=== PATIENT | female | born 1965 | race African-American/Black ===

== ENCOUNTER 2022-02-19 13:48 | Observation (INO) | payer SELFPAY ==
[2022-02-19] VITALS (20 sets, daily range): BP systolic 102–209; BP diastolic 54–121; PULSE 78–108; RESP 14–25; TEMP 36.5–36.8; O2SAT 96–100; BMI 33.6
--- NOTE | ~2022-02-19 | NM_ITS ---
EXAMINATION: NM stress w perf spect multi DATE: 02/20/2022 09:06 INDICATION: Chest pain TECHNIQUE: Rest images were obtained following intravenous administration of 10.5 mCi Tc99m tetrofosm in ([employer]). The patient performed an exercise activity. At peak exercise, 33 mCi Tc99m tetrofosmin ([employer]) was administered intravenously, and stress images were obtained. Data was reconstructed int o short axis and horizontal and vertical long axis SPECT images. Gated SPECT images were also obtaine d. COMPARISON: None. FINDINGS: There is normal left ventricular perfusion without definite evidence of reversible or fixed perfusion abnormality to suggest ischemia or infarction. There is normal left ventricular chamber size, wall motion and ejection fraction. Left ventricular ejection fraction measures >70%. IMPRESSION: 1. Normal myocardial perfusion at rest and during stress. 2. Left ventricular ejection fraction measuring >70%. Reviewed, dictated and finalized at location B.
--- NOTE | ~2022-02-19 | XR_ITS ---
EXAMINATION: XR chest 2V DATE: 02/19/2022 14:07 INDICATION: Chest pain TECHNIQUE: Frontal and lateral views of the chest are obtained COMPARISON: None available FINDINGS: The lungs are free of acute opacities. There is no pleural effusion or pneumothorax. The ca rdiomediastinal silhouette is normal. There is mild thoracic spondylosis. IMPRESSION: 1. No acute cardiopulmonary abnormality. Reviewed, dictated and finalized at location F.
--- NOTE | 2022-02-19 13:51 | ECG_ITS ---
Rate 95 IN 151 QRSd 84 QT 330 QTc 416 --[place]-- P 56 QRS -11 T 137 SINUS RHYTHM DELAYED PRECORDIAL R/S TRANSITION LEFT VENTRICULAR HYPERTROPHY AND ST-T CHANGE BORDERLINE ST-T WAVE ABNORMALITY- DIFFUSE LEADS BASELINE ARTIFACT- V4, V6 BORDERLINE ECG Electronically Signed On 03-01-2022 12:20:05 CDT by Daniel Matos D.O. NO PREVIOUS ECG AVAILABLE FOR COMPARISON [facility]
[2022-02-19 14:07] LABS: Basophils Percent Auto 0.4 % (0.2-1.2); Eosinophils Absolute Auto 0.1 K/mm3 (0-0.3); Hematocrit 38.6 % (37.0-47.0); Hemoglobin 12.1 g/dL (12.0-15.0); Immature Granulocyte Absolute 0.02 K/mm3 (0.00-0.031); Immature Granulocyte Percent A 0.3 % (0-0.5); Lymphocytes Absolute Auto 2.76 K/mm3 (0.9-3.2); Lymphocytes Percent Auto 39.9 % (18.3-44.2); Mean Corpuscular HGB Conc 31.3 g/dl (32-36); Mean Corpuscular Hemoglobin 28.9 pg (26-34); Mean Corpuscular Volume 92.3 fl (80-100); Mean Platelet Volume 10.3 fl (7.4-10.4); Monocytes Absolute Auto 0.5 K/mm3 (0.1-0.6); Monocytes Percent Auto 6.6 % (2.6-8.5); Neutrophils Absolute Auto 3.6 K/mm3 (1.3-6.7); Neutrophils Percent Auto 51.8 % (45.5-73.1); Platelet Count Result 252 k/mm3 (150-375); Red Blood Count 4.18 M/mm3 (4.2-5.4); Red Cell Distribution Width 13.8 % (11.5-14.5); White Blood Count 6.9 K/mm3 (4.5-10.0)
[2022-02-19 14:25] LABS: Alanine Aminotransferase 28 U/L (4-35); Alkaline Phosphatase 90 U/L (38-126); Anion Gap 11 mmol/L (8-16); Aspartate Amino Transferase 35 U/L (14-36); Bilirubin,Total 0.4 mg/dL (0.2-1.3); Blood Urea Nitrogen 9 mg/dL (7-17); Calcium 9.1 mg/dL (8.4-10.2); Carbon Dioxide 22 mmol/L (22-30); Chloride 107 mmol/L (98-107); Estimated Glomerular Filt Rate > 60; Glucose 120 mg/dL (65-110); Lipase 62 U/L (23-300); Potassium 4.3 mmol/L (3.4-5.0); Sodium 140 mmol/L (137-145)
[2022-02-19 14:29] LABS: Prothrombin Time 13.2 Seconds (11.1-14.7); Troponin I < 0.012 ng/mL (0.000-0.034)
[2022-02-19 14:30] LABS: Partial Thromboplastin Time 28.9 SECONDS (22.3-36.8)
--- NOTE | 2022-02-19 14:50 | ED.CHESTPAIN ---
HPI - Chest Pain General Chief Complaint: Chest Pain Stated Complaint: chest pain/beck Time Seen by Provider: 02/19/22 14:39 Source: patient Mode of arrival: ambulatory Limitations: no limitations History of Present Illness HPI narrative: The patient is a 56-year-old female with a history of hypertension presenting to the emergency department for evaluation of headache, chest pain. Patient reports that she has had headache and chest pain intermittently over the past several weeks. Patient states that her chest pain seems to be associated with exertion and she experiences increased chest pain whenever she exerts herself. The chest pain when it occurs is associated with nausea, diaphoresis. She denies lightheadedness. Denies radiation of the pain to the neck, back, shoulder. She denies any significant current pain. States that when the pain occurs it is in the center of her chest without radiation to the lower flanks. No ripping or tearing sensation to the pain. She denies any lower extremity swelling, redness. Denies history of known COVID infection. States she has received 2 vaccinations. Patient denies any cough, hemoptysis. Denies fever, chills. Patient states that she has been seen by her primary care physician in the past but has been lost to follow-up since she has no insurance, thus discontinued her antihypertensives over a year ago. Related Data Allergies Allergy/AdvReac Type Severity Reaction Status Date / Time lisinopril AdvReac Cough Verified 02/19/22 14:27 Review of Systems Review of Systems: CONSTITUTIONAL: Denies fever, chills, or sweats. EYES: Denies visual changes, redness, or discharge. ENT: Denies rhinorrhea, congestion, sore throat, or otalgia. CARDIOVASCULAR: Denies chest pain, palpitations, or edema. RESPIRATORY: Denies cough or dyspnea. GASTROINTESTINAL: Denies abdominal pain, nausea, vomiting, or diarrhea. GENITOURINARY: Denies dysuria or hematuria. SKIN: Denies rash or itching. MUSCULOSKELETAL: Denies back pain, joint pain, or myalgia. NEUROLOGIC: Reports headache without associated numbness or weakness [facility] Social History Social History (Updated 02/19/22 @ 15:32 by Rebecca Horne MD) Smoking status: Never smoker Alcohol intake: never Substance use: never Gender identity (if verbalized by the patient): Female Exam Narrative: GENERAL: Awake, alert, conversant HEAD: Normocephalic, atraumatic. EYES: PERRLA and EOMI. ENT: Nares clear, no rhinorrhea or epistaxis. Mucous membranes moist. NECK: Supple. CHEST: No respiratory distress, breathing even and non labored, no chest wall tenderness HEART: Regular rate, sinus rhythm ABDOMEN:Non distended, non tender EXTREMITIES: Normal range of motion. No edema. SKIN: Warm, dry, no rash. NEURO:No focal deficits. Alert and oriented x3 Course Vital Signs Vital signs: Vital Signs Temperature 36.8 C 02/19/22 14:22 Pulse Rate 92 02/19/22 14:22 Respiratory Rate 14 02/19/22 14:22 Blood Pressure 209/113 H 02/19/22 14:22 Pulse Oximetry 99 02/19/22 14:22 Temperature 36.8 C 02/19/22 14:22 Pulse Rate 107 H 02/19/22 17:30 Respiratory Rate 17 02/19/22 17:30 Blood Pressure 180/100 H 02/19/22 17:30 Pulse Oximetry 99 02/19/22 17:30 MDM - Chest Pain MDM Narrative Medical decision making narrative: Patient presenting to the emergency department for evaluation of elevated blood pressure, chest pain but denies current chest pain. Patient reports her chest pain has been with exertion, resolved with rest. The time of assessment, patient is quite hypertensive. IV access obtained and labs are drawn laboratory results are reassuring. No KKOO, no elevation in troponin with 2 separate troponin testing. Given symptoms have been ongoing for several weeks, I think most of this is likely related to her chronic hypertension which has been untreated for years at this point. Patient was given IV hydralazine, oral amlodipine. Repeat blo
[2022-02-19] MEDS: ASPIRIN 81 MG CHEWABLE TABLET 324 MG PO (14:55)
[2022-02-19] MEDS: hydrALAZINE HCL 20 MG/ML VIAL 10 MG IV PUSH (15:47)
[2022-02-19] MEDS: amLODIPine BESYLATE 5 MG TABLET PO (16:00)
[2022-02-19] MEDS: hydrALAZINE HCL 20 MG/ML VIAL IV PUSH (16:37)
[2022-02-19 17:33] LABS: Troponin I < 0.012 ng/mL (0.000-0.034)
--- NOTE | 2022-02-19 18:01 | ECG_ITS ---
Measurements Intervals [place] Rate: 98 P: 22 [place]: 142 QRS: -6 QRSD: 85 T: 7 QT: 363 QTc: 464 Interpretive Statements SINUS RHYTHM NONSPECIFIC T-WAVE ABNORMALITY NO PREVIOUS ECG AVAILABLE FOR COMPARISON Electronically Signed On 02-21-2022 13:11:22 CDT by Serina GARCIA
[2022-02-19] MEDS: MORPHINE SULFATE (*CRX) 4 MG/ML INJ IV PUSH (18:07)
[2022-02-19] MEDS: NITROGLYCERIN SL 0.4 MG TABLET SUBLINGUAL (18:07)
[2022-02-19] MEDS: BELLADONNA ALK/PHENOB ELIX 10 ML, MAG HYDROX/ALUMINUM HYD/SIMETH 30 ML, LIDOCAINE HCL 2... PO (18:12)
[2022-02-19] MEDS: SODIUM CHLORIDE 0.9% IV 500 ML 999 ML IV CONT (18:28)
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
[2022-02-19 19:32] LABS: D Dimer 0.39 ug/mL (<0.48)
--- NOTE | 2022-02-19 20:33 | ADMGEN ---
This patient, Chloe Muñoz, was admitted to IMU Room 211-01 at 2031. Patient/family oriented to hospital policies and general routines including ID bracelet, bed and alarms, visiting hours, pain management, procedures, bathroom and other care routines, personal items, smoking policy, room service/diet, and visiting hours. Information on how to activate the Rapid Response Team has been discussed. Patient/Family are encouraged to report perceived risks to care and to ask questions if they do not understand what they are told or what they should do.
[2022-02-19 21:24] LABS: Troponin I 0.012 ng/mL (0.000-0.034)
--- NOTE | 2022-02-19 22:20 | PC.NURSE ---
patient stated that she takes no home medication. the medication that is on her list she said that she hasn't taken for a very long time and that she does not even have a dr.
--- NOTE | 2022-02-19 22:22 | PC.NURSE ---
dr kincaid is aware of patients constant intermittent chest pain. medication ordered. will continue to monitor.
[2022-02-20] VITALS: PULSE 88; RESP 20; O2SAT 96
--- NOTE | 2022-02-20 | ECHO_ITS ---
Patient Info Name: Chloe Muñoz Age: 56 years : 1965 Gender: Female Ht: 64 in Wt: 198 lbs BSA: 2.05 m2 HR: 77 bpm BP: 151 / 86 mmHg Heart Rhythm: Sinus Rhythm Technical Quality: Fair Exam Date: 02/20/2022 9:41 AM Exam Location: [facility] Pulmonary Patient Status: Outpatient Admit Date: 02/19/2022 Staff Ordering Physician: Daniel Matos DO Director Search Marketing Strategies: Alee Sanders RDCS Attending Provider: Daniel Matos DO Referring Physician: Carlo COOPER; Exam Type: CA echo doppler color flow Study Info Indications - su Complete two-dimensional, color flow and Doppler transthoracic echocardiogram is performed. Summary 1. Complete two-dimensional, color flow and Doppler transthoracic echocardiogram is performed. 2. Left ventricular chamber dimension is normal. 3. Left ventricular systolic function is hyperdynamic, estimated at >70%. 4. There is mildly increased left ventricular wall thickness. 5. The left ventricular diastolic function is grade II diastolic dysfunction. 6. E/e' 15 is elevated. 7. No pulmonary hypertension, estimated pulmonary arterial systolic pressure is 15 mmHg. Left Ventricle E/e' 15 is elevated. Left ventricular chamber dimension is normal. Left ventricular systolic function is hyperdynamic, estimated at >70%. There is mildly increased left ventricular wall thickness. The left ventricular diastolic function is grade II diastolic dysfunction. Right Ventricle Right ventricular systolic function is normal and with normal TAPSE 2.1 cm. Right ventricular chamber dimension is normal. Left Atria Left atrial chamber dimension is normal. Right Atria Right atrial chamber dimension is normal. Aortic Valve The aortic valve is not well visualized. Cannot determine number of aortic valve leaflets. There is no aortic valve stenosis. There is no aortic valve regurgitation. Pulmonic Valve There is no pulmonic regurgitation. Mitral Valve There is no mitral valve stenosis. There is no mitral valve regurgitation. Tricuspid Valve There is no tricuspid valve regurgitation. No pulmonary hypertension, estimated pulmonary arterial systolic pressure is 15 mmHg. Pericardium/Pleural There is no pericardial effusion. Inferior Vena Cava Normal inferior vena cava with >50% collapse upon inspiration consistent with normal right atrial pressure, 5 mmHg. Aorta The aortic root size at the sinus of Valsalva is normal. Left Ventricular Outflow Tract Name Value Normal LVOT 2D LVOT Diameter 2.1 cm LVOT Doppler LVOT Peak Gradient 8 mmHg LVOT Mean Gradient 4 mmHg LVOT VTI 26 cm LVOT VTI/AV VTI Ratio 1.0 LVOT Stroke Volume 90 ml LVOT CO 7.0 l/min LVOT CI 3.4 l/min/m2 Pulmonic Valve Name Value Normal
[2022-02-20 02:00] VITALS: PULSE 82
[2022-02-20 04:00] VITALS: BP 151/86; PULSE 81; PULSE 82; RESP 20; TEMP 36.7; O2SAT 96; O2SAT 97
[2022-02-20] MEDS: KETOROLAC 15 MG/ML VIAL (*BKC) IV PUSH (04:41)
[2022-02-20 05:44] LABS: Cholesterol 201 mg/dL (0-200); HDL Direct 30 mg/dL; Triglycerides 566 mg/dL (<150)
[2022-02-20 05:46] LABS: LDL Cholesterol Direct 48 mg/dL
[2022-02-20 06:00] VITALS: PULSE 80
--- NOTE | 2022-02-20 07:15 | PC.NURSE ---
patient off floor for stress test.
[2022-02-20 09:00] VITALS: BP 156/84; PULSE 74; PULSE 90; RESP 16; TEMP 35.8; O2SAT 99
--- NOTE | 2022-02-20 09:00 | EST_ITS ---
Patient Info Name: Chloe Muñoz Age: 56 years : 1965 Gender: Female Ht: 64 in Wt: 195 lbs BSA: 2.03 m2 Exam Date: 02/20/2022 8:00 AM Exam Location: [facility] Stress Patient Status: Inpatient Admit Date: 02/19/2022 Staff Ordering Physician: Daniel Matos DO Attending Provider: Daniel Matos DO Exercise Technologist: Lashanda Mckenzie RDCS Exercise Physician: Daniel Matos DO Exam Type: CA stress test treadmill w NM Study Info Indications R07.9 - Chest pain, unspecified A nuclear stress test was performed. Summary 1. 1. Negative Uriel exercise stress test for ischemic ST changes by ECG criteria. However, patient achieved only 81% MPHR for age group which reduces sensitivity of the test. 2. 2. Reduced functional capacity, achieving 7 METs of workload. 3. 3. Baseline hypertension with hypertensive response to exercise. 4. 4. Appropriate HR response to exercise. 5. 5. Appropriate HR recovery at 1 minute post exercise. 6. 6. Nuclear scan to follow and will be reported separately. Please correlate with it. 7. 7. Patient informed of the above results. Protocol: Uriel Stress ECG Details Stage: REST Duration (min): 1 min : 51 sec Speed (mph): 0.0 Grade (%): 0 HR (bpm): 73 SBP (mmHg): 167 DBP (mmHg): 86 METS: --- Stage: REST Duration (min): 7 min : 32 sec Speed (mph): 0.0 Grade (%): 0 HR (bpm): 78 SBP (mmHg): 167 DBP (mmHg): 86 METS: --- Stage: STAGE 1 Duration (min): 1 min : 0 sec Speed (mph): 1.7 Grade (%): 10 HR (bpm): 103 SBP (mmHg): 167 DBP (mmHg): 86 METS: --- Stage: STAGE 1 Duration (min): 2 min : 0 sec Speed (mph): 1.7 Grade (%): 10 HR (bpm): 112 SBP (mmHg): 167 DBP (mmHg): 86 METS: --- Stage: STAGE 1 Duration (min): 3 min : 0 sec Speed (mph): 1.7 Grade (%): 10 HR (bpm): 117 SBP (mmHg): 215 DBP (mmHg): 85 METS: --- Stage: STAGE 2 Duration (min): 1 min : 0 sec Speed (mph): 2.5 Grade (%): 12 HR (bpm): 125 SBP (mmHg): 215 DBP (mmHg): 85 METS: --- Stage: STAGE 2 Duration (min): 2 min : 0 sec Speed (mph): 2.5 Grade (%): 12 HR (bpm): 132 SBP (mmHg): 216 DBP (mmHg): 89 METS: --- Stage: STAGE 2 Duration (min): 2 min : 20 sec Speed (mph): 2.5 Grade (%): 12 HR (bpm): 133 SBP (mmHg): 216 DBP (mmHg): 89 METS: --- Stage: RECOVERY Duration (min): 0 min : 39 sec Speed (mph): 0.0 Grade (%): 0 HR (bpm): 129 SBP (mmHg): 216 DBP (mmHg): 89 METS: --- Stage: RECOVERY Duration (min): 1 min : 39 sec Speed (mph): 0.0 Grade (%): 0 HR (bpm): 101 SBP (mmHg): 216 DBP (mmHg): 89 METS: --- Stage: RECOVERY Duration (min): 2 min : 39 sec Speed (mph): 0.0 Grade (%): 0 HR (bpm): 94 SBP (mmHg): 221 DBP (mmHg): 91 METS: --- Stage: RECOVERY Duration (min): 3 min : 39 sec Speed (mph): 0.0
--- NOTE | 2022-02-20 09:00 | PC.NURSE ---
Pt returned from [facility] via wheelchair
[2022-02-20] MEDS: amLODIPine BESYLATE 5 MG TABLET PO (09:01)
[2022-02-20] MEDS: ASPIRIN 81 MG CHEWABLE TABLET PO (09:01)
[2022-02-20] MEDS: OMEGA 3 POLYUNSAT FATTY ACIDS 1 GM CAP 2 GM PO (09:02)
[2022-02-20] MEDS: FENOFIBRATE 160 MG TABLET PO (09:02)
[2022-02-20] MEDS: LOSARTAN POTASSIUM 50 MG TABLET PO (09:02)
[2022-02-20] MEDS: ACETAMINOPHEN 325 MG TABLET 650 MG PO (09:03)
[2022-02-20 10:00] VITALS: PULSE 79
--- NOTE | 2022-02-20 12:10 | PM.DS ---
DS: Admitting Diagnosis Discharge Date CP, hypertensive urgency. Admitting Diagnosis CP DS: Summary Hospital Course Reason for hospitalization: CP Hospital Course: 56 yr old woman presents with cp and headaches and had high BP in 200 SBP. WV was r/o by serial troponin and EKG. Stress nuclear is negative for ischemia. Echo shows >70% EF, grade II diastolic dysfunction (E/e' 15). No longer having chest pains. Has intermittent headaches. BP improved and started on Amlodipine 5 mg daily and Losartan 50 mg BID. Time Spent with Patient Time attestation: Total time spent providing and/or coordinating discharge services: Time spent: Less than 30 minutes Exam Const: General: cooperative, healthy appearing and comfortable Nutritional Appearance: obese Resp: Auscultation: clear to auscultation bilaterally, no crackles, no rales, no rhonchi and no wheezes Cardio: Jugular venous distension: no JVD Rate: regular rate Rhythm: regular rhythm Heart sounds: no murmurs Peripheral pulses: dorsalis pedis present GI: GI Palp: No abdominal tenderness and Yes Soft to palpation Neuro: General: oriented to person, oriented to place and oriented to time Extrem: Right lower extremity: no edema Left lower extremity: no edema DS: Data Data Completed and Pending Labs on day of discharge: Labs from last 24 hours 02/20/22 02/19/22 02/19/22 04:49 20:46 17:03 WBC RBC Hgb Hct MCV MCH MCHC RDW Plt Count MPV Immature Gran % (Auto) Neut % (Auto) Lymph % (Auto) Young % (Auto) Eos % (Auto) Baso % (Auto) Lymph # (Auto) Young # (Auto) Eos # (Auto) Baso # (Auto) Abs Immat Gran (auto) Absolute Neuts (auto) Absolute Nucleated RBC Nucleated RBC % PT INR APTT D-Dimer Sodium Potassium Chloride Carbon Dioxide Anion Gap BUN Creatinine Estim Creat Clear Calc Estimated GFR Glucose Calcium Total Bilirubin AST ALT Alkaline Phosphatase Troponin I 0.012 < 0.012 Total Protein Albumin Triglycerides 566 H Cholesterol 201 H LDL Cholesterol Direct 48 HDL Direct 30 Lipase 02/19/22 02/19/22 02/19/22 14:00 14:00 14:00 WBC 6.9 RBC 4.18 L Hgb 12.1 Hct 38.6 MCV 92.3 MCH 28.9 MCHC 31.3 L RDW 13.8 Plt Count 252 MPV 10.3 Immature Gran % (Auto) 0.3 Neut % (Auto) 51.8 Lymph % (Auto) 39.9 Young % (Auto) 6.6 Eos % (Auto) 1.0 Baso % (Auto) 0.4 Lymph # (Auto) 2.76 Young # (Auto) 0.5 Eos # (Auto) 0.1 Baso # (Auto) 0.0 Abs Immat Gran (auto) 0.02 Absolute Neuts (auto) 3.6 Absolute Nucleated RBC 0.0 Nucleated RBC % 0.0 PT 13.2 INR 1.0 APTT 28.9 D-Dimer Sodium 140 Potassium 4.3 Chloride 107 Carbon Dioxide 22 Anion Gap 11 BUN 9 Creatinine 0.60 L Estim Creat Clear Calc Not Reportable Estimated GFR > 60 Glucose 120 H Calcium 9.1 Total Bilirubin 0.4 AST 35 ALT 28 Alkaline Phosphatase 90 Troponin I < 0.012 Total Protein 8.0 Albumin 5.0 Triglycerides Cholesterol LDL Cholesterol Direct HDL Direct Lipase 62 02/19/22 13:59 WBC RBC Hgb Hct MCV MCH MCHC RDW Plt Count MPV Immature Gran % (Auto) Neut % (Auto) Lymph % (Auto) Young % (Auto) Eos % (Auto) Baso % (Auto) Lymph # (Auto) Young # (Auto) Eos # (Auto) Baso # (Auto) Abs Immat Gran (auto) Absolute Neuts (auto) Absolute Nucleated RBC Nucleated RBC % PT INR APTT D-Dimer 0.39 Sodium Potassium Chloride Carbon Dioxide Anion Gap BUN Creatinine Estim Creat Clear Calc Estimated GFR Glucose Calcium Total Bilirubin AST ALT Alkaline Phosphatase Troponin I Total Protein Albumin Triglycerides Cholesterol LDL Cholesterol Direct HDL Direct Lipase Discharge Plan Discharge Attending physician on d
== END 2022-02-20 14:24 | disposition home or self-care (01) ==
LOC: ANHED 18:28 → ANHIMU 20:13
PROVIDERS: Admitting Provider Internal Medicine Cardiovascular Disease; Emergency Provider Emergency Medicine; Visit Provider Internal Medicine Cardiovascular Disease
DX: R07.9 Chest pain, unspecified (principal); R51.9 Headache, unspecified; I10 Essential (primary) hypertension; R06.00 Dyspnea, unspecified
CPT/HCPCS: 36415; 71046; 78452; 80053; 80061; 83690; 84484; 85025; 85380; 85610; 85730; 93005; 93017; 93306; 96361; 96374; 96375; 96376; 99285; A9270; A9502; G0378; G0379; J0360; J1885; J2270; J7040

== ENCOUNTER 2023-08-20 19:14 | Emergency (ER) | payer BC, SELFPAY ==
--- NOTE | ~2023-08-20 | XR_ITS ---
EXAMINATION: XR chest 2V DATE: 08/20/2023 19:44 INDICATION: Cough. Chest pain. Fever. TECHNIQUE: Frontal and lateral views of the chest were obtained. COMPARISON: Chest 2 views 02/19/2022, CT abdomen and pelvis 12/03/2014 FINDINGS: There is no pneumonia, pleural effusion, or pneumothorax. The heart size is normal. IMPRESSION: 1. No acute cardiopulmonary disease. Reviewed, dictated and finalized at location E.
--- NOTE | ~2023-08-20 | CT_ITS ---
EXAMINATION: CTA chest PE protocol DATE: 08/20/2023 23:57 INDICATION: Chest pain. TECHNIQUE: Computed tomography angiography (CTA) of the chest was performed with 100 mL Omnipaque-350 intravenous contrast timed to evaluate the pulmonary arteries. Coronal maximum intensity projection 3D-reconstructions were created by the technologist. Automated exposure control and iterative reconst ruction technique were employed. The dose-length product was 721.50 mGy-cm. COMPARISON: CT abdomen and pelvis 12/03/2014 FINDINGS: There is mild emphysema. There is mild atelectasis bilaterally. No pleural effusion. The he art size is normal. No pericardial effusion. There is no pulmonary embolus. There is a 1.8 cm cyst in left kidney. There is diffuse hepatic steatosis. There is severe thoracic spondylosis. There is mild chronic anterior wedging of multiple thoracic vertebral bodies. IMPRESSION: 1. No pulmonary embolus. 2. Mild emphysema. Reviewed, dictated and finalized at location E.
[2023-08-20 19:19] VITALS: BP 157/87; PULSE 83; RESP 17; TEMP 38.2; O2SAT 97
--- NOTE | 2023-08-20 19:22 | ECG_ITS ---
Measurements Intervals [place] Rate: 80 P: 29 [place]: 163 QRS: -11 QRSD: 81 T: -53 QT: 333 QTc: 385 Interpretive Statements SINUS RHYTHM WITH OCCASIONAL SUPRAVENTRICULAR PREMATURE COMPLEXES NONSPECIFIC T-WAVE ABNORMALITY COMPARED TO ECG 02/19/2022 18:01:27 NO SIGNIFICANT CHANGES Electronically Signed On 08-20-2023 20:06:35 CDT by Serina Santoro M.D.
[2023-08-20 19:44] LABS: Basophils Percent Auto 0.4 % (0.2-1.2); Eosinophils Percent Auto 0.1 % (0-4.4); Hematocrit 34.2 % (37.0-47.0); Hemoglobin 10.9 g/dL (12.0-15.0); Immature Granulocyte Absolute 0.02 K/mm3 (0.00-0.031); Immature Granulocyte Percent A 0.3 % (0-0.5); Lymphocytes Absolute Auto 0.74 K/mm3 (0.9-3.2); Lymphocytes Percent Auto 10.7 % (18.3-44.2); Mean Corpuscular HGB Conc 31.9 g/dl (32-36); Mean Corpuscular Hemoglobin 29.2 pg (26-34); Mean Corpuscular Volume 91.7 fl (80-100); Mean Platelet Volume 10.2 fl (7.4-10.4); Monocytes Absolute Auto 0.6 K/mm3 (0.1-0.6); Monocytes Percent Auto 8.8 % (2.6-8.5); Neutrophils Absolute Auto 5.5 K/mm3 (1.3-6.7); Neutrophils Percent Auto 79.7 % (45.5-73.1); Platelet Count Result 199 k/mm3 (150-375); Red Blood Count 3.73 M/mm3 (4.2-5.4); Red Cell Distribution Width 13.5 % (11.5-14.5); White Blood Count 6.9 K/mm3 (4.5-10.0)
[2023-08-20 19:55] LABS: Alanine Aminotransferase 27 U/L (6-35); Albumin Level 4.6 g/dL (3.5-5.1); Alkaline Phosphatase 68 U/L (38-126); Anion Gap 10 mmol/L (8-16); Aspartate Amino Transferase 30 U/L (14-36); Bilirubin,Total 0.4 mg/dL (0.2-1.3); Blood Urea Nitrogen 14 mg/dL (7-17); Calcium 9.3 mg/dL (8.4-10.2); Carbon Dioxide 21 mmol/L (22-30); Chloride 106 mmol/L (98-107); Estimated CRCL calculation 96 ml/min; Estimated Glomerular Filt Rate > 60; Glucose 93 mg/dL (65-110); Lipase 79 U/L (23-300); Potassium 3.8 mmol/L (3.4-5.0); Sodium 137 mmol/L (137-145)
[2023-08-20 20:00] LABS: Prothrombin Time 13.6 Seconds (11.1-14.7)
[2023-08-20 20:07] LABS: Troponin I < 0.012 ng/mL (0.000-0.034)
[2023-08-20 22:22] VITALS: BP 137/96; PULSE 84; RESP 19; O2SAT 97
[2023-08-20 23:17] LABS: Troponin I < 0.012 ng/mL (0.000-0.034)
[2023-08-20 23:43] VITALS: BP 136/124; PULSE 77; RESP 20; O2SAT 98
[2023-08-20 23:53] LABS: Influenza A QL RT-PCR Negative (Negative); Influenza B QL RT-PCR Negative (Negative); SARS-CoV-2 RNA PCR Positive (Negative)
[2023-08-21] MEDS: ACETAMINOPHEN 500 MG TABLET 1000 MG PO (00:14)
--- NOTE | 2023-08-21 00:31 | ED.GENADULT ---
HPI - General Adult General Chief complaint: Unspecified Stated complaint: bodyaches, headache Time Seen by Provider: 08/20/23 22:07 History of Present Illness HPI narrative: Patient is a 57-year-old female who presents emergency department with chief complaint of body aches fever for the last 4 days. Patient reports no sick contacts states that chest hurts whenever she stands up she walks patient states sharp type pain. Related Data Home Medications Medication Instructions Recorded Confirmed omega 1-[id number]-[id number]-fish oil 1,000 mg 1 cap PO BID 02/27/22 02/27/22 (120 mg-180 mg) capsule (Fish Oil) Allergies Allergy/AdvReac Type Severity Reaction Status Date / Time lisinopril AdvReac Cough Verified 02/27/22 14:06 Review of Systems Review of Systems: A 10 system review of systems was completed on the patient and is negative except for what is stated in the HPI. Nursing and ancillary documentation was reviewed. [facility] Family History Family History Mother Smoking Hypertension Diabetes mellitus Kidney failure Cardiomegaly Father Smoking Throat cancer Sibling Smoking Throat cancer Social History Social History Smoking status: Never smoker Additional smoking assessment comments: quit 2014 Alcohol intake: never Substance use: never Gender identity (if verbalized by the patient): Female Spiritual care concerns: No Exam Narrative: GENERAL: Well-appearing, well-nourished, and in no acute distress. HEAD: Normocephalic, atraumatic. EYES: PERRLA and EOMI. ENT: Nares clear, no rhinorrhea or epistaxis. Mucous membranes moist. NECK: Supple. CHEST: Clear to auscultation. No respiratory distress. HEART: Regular rate and rhythm. No murmur heard. Normal peripheral pulses. ABDOMEN: Soft, nontender, nondistended, normal active bowel sounds. EXTREMITIES: Normal range of motion. No edema. SKIN: Warm, dry, no rash. NEURO: No focal deficits. Alert and oriented x3. PSYCH: Normal mood and affect. Course Vital Signs Vital signs: Vital Signs Temperature 38.2 C H 08/20/23 19:19 Pulse Rate 83 08/20/23 19:19 Respiratory Rate 17 08/20/23 19:19 Blood Pressure 157/87 H 08/20/23 19:19 Pulse Oximetry 97 08/20/23 19:19 Oxygen Delivery Room Air 08/20/23 19:19 Temperature 38.2 C H 08/20/23 19:19 Pulse Rate 77 08/20/23 23:43 Respiratory Rate 20 08/20/23 23:43 Blood Pressure 136/124 H 08/20/23 23:43 Pulse Oximetry 98 08/20/23 23:43 Oxygen Delivery Room Air 08/20/23 19:19 Medical Decision Making MDM Narrative Medical decision making narrative: Differential diagnosis includes pneumonia, CHF, ACS, COVID-19, pneumonia, upper respiratory infection. Pulmonary embolism Laboratory studies were obtained and patient showed a normal CBC electrolytes are within normal limits COVID test was positive for COVID Patient's troponin was negative CTA chest showed no evidence of pulmonary embolism Vital Signs Vital Signs: Vital Signs Temperature 38.2 C H 08/20/23 19:19 Pulse Rate 83 08/20/23 19:19 Respiratory Rate 17 08/20/23 19:19 Blood Pressure 157/87 H 08/20/23 19:19 Pulse Oximetry 97 08/20/23 19:19 Oxygen Delivery Room Air 08/20/23 19:19 Temperature 38.2 C H 08/20/23 19:19 Pulse Rate 77 08/20/23 23:43 Respiratory Rate 20 08/20/23 23:43 Blood Pressure 136/124 H 08/20/23 23:43 Pulse Oximetry 98 08/20/23 23:43 Oxygen Delivery Room Air 08/20/23 19:19 Lab Data 08/20/23 19:31 08/20/23 19:31 Labs: Lab Results 08/20/23 08/20/23 08/20/23 Range/Units 19:31 22:34 23:04 WBC 6.9 (4.5-10.0) K/mm3 RBC 3.73 L (4.2-5.4) M/mm3 Hgb 10.9 L (12.0-15.0) g/dL Hct 34.2 L (37.0-47.0) % MCV 91.7 (80-100) fl MCH 29.2 (26-34) pg MCHC 31.9 L
[2023-08-21 00:56] VITALS: BP 153/78; PULSE 72; RESP 20; O2SAT 98
== END 2023-08-21 00:58 | disposition home or self-care (01) ==
PROVIDERS: Emergency Medicine; Emergency Provider Emergency Medicine
DX: U07.1 COVID-19 (principal); J06.9 Acute upper respiratory infection, unspecified
CPT/HCPCS: 36415; 71046; 71275; 80053; 83690; 84484; 85025; 85610; 85730; 87636; 93005; 99284; A9270; Q9967